=== PATIENT | female | born 1995 | race Caucasian/White ===

== ENCOUNTER 2022-10-17 11:14 | Outpatient (CLI) | payer BC, MEDICAID, SELFPAY ==
[2022-10-17] VITALS (14 sets, daily range): BP systolic 116–177; BP diastolic 69–97; PULSE 75–141; RESP 17; BMI 39.9
[2022-10-17 11:54] LABS: Basophils % 0.2 %; Eosinophils # 0.1 10^3/uL (0.0-0.8); Eosinophils % 0.6 %; Hematocrit 35.1 % (37.0-47.0); Hemoglobin 11.3 g/dL (11.5-15.3); Lymphocytes # 2.5 10^3/uL (0.8-4.8); Lymphocytes % 27.3 %; Mean Corpuscular HGB Conc 32.2 g/dL (30.0-36.0); Mean Corpuscular Hemoglobin 27.1 pg (28.0-34.0); Mean Corpuscular Volume 84.2 fl (81-99); Mean Platelet Volume 9.5 fL (7.4-10.4); Monocytes # 0.7 10^3/uL (0.2-0.9); Monocytes % 7.2 %; Neutrophils # 5.99 10^3/uL (1.8-7.7); Neutrophils % 64.4 %; Nucleated Red Blood Cells % 0 %; Platelet Count 216 10^3/cmm (130-400); Red Blood Count 4.17 10^6/uL (4.1-5.3); Red Cell Distribution Width 16.2 % (12.1-15.1); White Blood Count 9.3 10^3/uL (4.0-10.0)
[2022-10-17 12:35] LABS: Add Urine Microscopic? YES; Bilirubin Urine Neg (Negative); Blood Urine Neg (Negative); Glucose Urine UA Norm (Normal); Ketones Urine Negative (Negative); Leukocyte Esterase Urine 2+ (Negative); Nitrate Urine Negative (Negative); Protein Urine 1+ (Negative); Urine Appearance Hazy (CLEAR); Urine Color Yellow (Yellow); Urobilinogen Urine Neg (Negative); pH Urine 7 (5-7)
[2022-10-17 12:37] LABS: Bacteria Urine 2+ /hpf; RBC Urine 0-4 /hpf (0-2); Squamous Epithelial Cell Urine 15-25 /hpf (0-5)
[2022-10-17 12:38] LABS: Add Urine Culture? No; Mucus Urine 1+ /hpf
[2022-10-17 12:50] LABS: Urine Creatinine 89 mg/dL (28-217)
[2022-10-17 12:55] LABS: Alanine Aminotransferase 6 U/L (0-33); Albumin Level 3.3 g/dL (3.5-5.2); Alkaline Phosphatase 89 U/L (35-105); Aspartate Amino Transferase 13 U/L (0-32); Blood Urea Nitrogen 11 mg/dL (6-20); Calcium 8.9 mg/dL (8.5-10.5); Carbon Dioxide 21 mmol/L (22-29); Chloride 103 mmol/L (98-107); Globulin 2.9 g/dL (1.3-4.6); Glomerular Filtration Rate 190.1 mL/min (90-130); Glucose 80 mg/dL (65-115); Osmolality Calculated 278 mOsm/kg (285-295); Sodium 135 mmol/L (136-145); Total Bilirubin 0.2 mg/dL (0.15-1.2); Total Protein 6.2 g/dL (6.6-8.7); Uric Acid 5.4 mg/dL (2.4-5.7)
[2022-10-17 13:13] LABS: UPRO/UCREAT Ratio 0.61 mg/mg CR; Urine Protein Random 54 mg/dL
[2022-10-17 13:14] LABS: Anion Gap 15.3 (5-19); Potassium 4.3 mmol/L (3.5-5.1)
[2022-10-18 16:04] LABS: Total Volume, Urine 1100 mL
[2022-10-18 17:24] LABS: Urine Total Protein 12.4 mg/dL (0-150); Urine Total Protein 24 Hour 136.4 mg/24hr (0-150)
== END 2022-10-17 14:58 | disposition home or self-care (01) ==
LOC: OPOB 11:15 → OBGYN 11:22
PROVIDERS: PCP Family Medicine; Visit Provider Family Medicine
DX: O16.9 Unspecified maternal hypertension, unspecified trimester (principal); Z3A.00 Weeks of gestation of pregnancy not specified
CPT/HCPCS: 36415; 80053; 81001; 82570; 84156; 84550; 85025

== ENCOUNTER 2022-10-19 10:15 | Outpatient (CLI) | payer BC, MEDICAID, SELFPAY ==
[2022-10-19 10:30] VITALS: BP 137/94; PULSE 108
[2022-10-19 10:46] VITALS: BP 131/84; PULSE 85
[2022-10-19 11:00] VITALS: BP 135/93; PULSE 85
[2022-10-19 11:15] VITALS: BP 131/87; PULSE 79
[2022-10-19] MEDS: acetaminophen 500 mg Tablet 1000 MG PO (11:28)
[2022-10-19 11:30] VITALS: BP 126/86; PULSE 79
[2022-10-19 11:36] LABS: Urine Creatinine 149 mg/dL (28-217)
[2022-10-19 11:40] LABS: Urine Protein Random 30 mg/dL
[2022-10-19 11:45] VITALS: BP 123/88; PULSE 80
== END 2022-10-19 12:07 | disposition home or self-care (01) ==
LOC: OPOB 10:20 → OBGYN 10:22
PROVIDERS: PCP Family Medicine; Visit Provider Family Medicine
DX: O26.899 Other specified pregnancy related conditions, unspecified trimester (principal); H53.8 Other visual disturbances; R51.9 Headache, unspecified; R03.0 Elevated blood-pressure reading, without diagnosis of hypertension
CPT/HCPCS: 59025; 82570; 84156; 99211

== ENCOUNTER 2022-10-22 10:50 | Outpatient (CLI) | payer BC, MEDICAID, SELFPAY ==
[2022-10-22 11:06] VITALS: BP 138/91; PULSE 93; RESP 17; TEMP 35.9
[2022-10-22 11:10] VITALS: BMI 40.8
[2022-10-22 11:26] VITALS: BP 132/81; PULSE 94
[2022-10-22 11:37] VITALS: BP 132/81; PULSE 94
== END 2022-10-22 11:37 | disposition home or self-care (01) ==
LOC: OPOB 10:56 → OBGYN 10:56
PROVIDERS: PCP Family Medicine; Visit Provider Family Medicine
DX: O26.899 Other specified pregnancy related conditions, unspecified trimester (principal); R03.0 Elevated blood-pressure reading, without diagnosis of hypertension
CPT/HCPCS: 59025; 99211

== ENCOUNTER 2022-10-26 07:11 | Inpatient (IN) | payer BC, MEDICAID, SELFPAY ==
--- NOTE | 2022-10-24 09:11 | ANES.PREANE2 ---
Pre-Anesthetic Assessment Height/Weight: Height 1.63 m Operation Date: 10/26/22 09:20 Proposed Procedures p Section Repeat(Not Applicable) - Ignacio Nino MD Familial anesthetic complications: none Was Beta Erin taken within 24 hours: N/A Was Clonidine taken within 24 hours: N/A Social No alcohol and No tobacco Exam alert, oriented x 3, clear to auscultation bilaterally and regular rate & rhythm Airway Submandibular: within normal limits Cervical ROM: within normal limits Mallampati: Class II Dentition: full History/ROS No significant history except as noted Anesthetic Plan ASA status: 2 Anesthesia: Regional (specify below) (SAB for repeat C/S) Medications/Allergies Allergies Allergy/AdvReac Type Severity Reaction Status Date / Time No Known Allergies Allergy Unverified 07/28/20 15:57 Data Anesthesia Cardiac Studies: Holter Monitor 07/29/20
[2022-10-26] VITALS (32 sets, daily range): BP systolic 101–161; BP diastolic 56–101; PULSE 80–155; RESP 17; TEMP 36.7; O2SAT 95–100; BMI 40.9
[2022-10-26] MEDS: metoclopramide 5 mg/mL SDV 2 mL 10 MG IVP (08:07)
[2022-10-26] MEDS: famotidine 20 mg/2 mL INJ IVP (08:07)
[2022-10-26] MEDS: citric acid-sodium citrate 30 mL UDC PO (08:07)
--- NOTE | 2022-10-26 08:30 | P.HPUD_ITS ---
Labor & Delivery H&P Update Date of Procedure: October 26, 2022 Date H&P Performed: 10/23/22 Admission Diagnosis: 27-year-old 2 para 1-0-0-1 at 37 weeks estimated gestational age with gestational hypertension and a history of a section Primary indication for procedure: 1. History of 2. Gestational hypertension Planned procedure: Operation Date: 10/26/22 09:20 Proposed Procedures p Section Repeat(Not Applicable) - Ignacio Nino MD Other information: The patient is a 27-year-old 2 para 1-0-0-1 at 37 weeks estimated gestational age presenting for a repeat section. Over the last couple of weeks, she has had elevated blood pressures. She did have 1 protein creatinine ratio that was 0.6. Her 24-hour urine protein was within normal limits. Despite that, she has had headaches, she has had some possible scotom kelly. She has had swelling in her feet and hands. She is also noted some swelling in her face. As such, the decision was made to proceed with a C- section after 37 weeks. We discussed the risks with her including the risks of bleeding, infection, and damage intra-abdominal organs. Because of her history of a intraperitoneal infection post , she is aware that there is a likelihood of more scar tissue than usual, which also increases her risk of complications. She and her partner have no further questions and wish to proceed.
[2022-10-26] MEDS: ceFAZolin 2,000 MG in sodium chloride 0.9% (plus) 50 ML 100 MG IV (08:50)
[2022-10-26 08:56] LABS: Basophils % 0.3 %; Eosinophils # 0.1 10^3/uL (0.0-0.8); Eosinophils % 0.8 %; Hematocrit 35.4 % (37.0-47.0); Hemoglobin 10.5 g/dL (11.5-15.3); Lymphocytes # 2.4 10^3/uL (0.8-4.8); Lymphocytes % 33.6 %; Mean Corpuscular HGB Conc 29.7 g/dL (30.0-36.0); Mean Corpuscular Hemoglobin 27.4 pg (28.0-34.0); Mean Corpuscular Volume 92.4 fl (81-99); Mean Platelet Volume 9.8 fL (7.4-10.4); Monocytes # 0.6 10^3/uL (0.2-0.9); Monocytes % 8.2 %; Neutrophils % 56.7 %; Nucleated Red Blood Cells % 0 %; Platelet Count 164 10^3/cmm (130-400); Red Blood Count 3.83 10^6/uL (4.1-5.3); Red Cell Distribution Width 15.7 % (12.1-15.1); White Blood Count 7.2 10^3/uL (4.0-10.0)
--- NOTE | 2022-10-26 10:30 | PC.NURSE ---
pt in PACU at this time
--- NOTE | 2022-10-26 10:30 | PM.OP ---
Operative Report Date of procedure: October 26, 2022 Pre-op diagnosis: 1. 27-year-old 2 para 1-0-0-1 at 37 weeks estimated gestational age with gestational hypertension presenting for a repeat section Post-op diagnosis: Status post lower transverse section Procedure done: Lower transverse section Specimens removed/disposition: Male infant with a weight of 7 pounds 5 ounces and Apgars of 7 and 8 Placenta with a three-vessel cord delivered intact Surgeon: Ignacio Nino Estimated blood loss (mL): 1,200 Procedure: The patient was brought back to the operating room where she was prepped and draped in usual sterile fashion. Anesthesia was found to be adequate. A lower transverse skin incision was then made with a #10 blade. I then dissected down to the underlying subcutaneous tissue until arriving at the prerectal fascia. The fascia was then nicked with the scalpel bilaterally. The fascial incisions were then carried laterally with Ortega scissors. Attention was then turned to the superior aspect of the incision which was grasped with kochers and tented up away from the underlying rectus abdominis muscles. The muscles were then dissected away from the fascia manually, and later with Ortega scissors. Attention was then turned to the inferior aspect of the incision, and the fascia was dissected away from the underlying muscle in similar fashion. The rectus abdominis muscles were then spread manually. The peritoneum was entered manually. Excellent visualization of the uterus was noted. A lower transverse uterine incision was then made with a #10 blade. After making an initial incision, a large venous murcia was noted with significant bleeding. Prior to finishing the incision I placed a ring forcep on the largest bleeding vein. Upon arriving at the intrauterine cavity, the uterine incision was then extended manually. Allises were then used to rupture the amniotic membrane. The infant was noted to be in vertex position. The baby was delivered without difficulty. . There was no meconium. There was no nuchal cord.. The cord was cut and clamped. The baby was then handed to the waiting nurse. The placenta was removed intact. The uterus was externalized. The intrauterine cavity was cleansed of any remaining debris. The uterine incision was reapproximated in 2 layers. The first layer was performed with 0 Vicryl in a running locked stitch. The second layer was an imbricating stitch also using 0 Vicryl. The uterus was replaced into the abdomen. The peritoneum was then irrigated with warm saline. I reexamined the uterine incision and found it to be hemostatic. The rectus abdominis muscles were then reapproximated using 0 Vicryl in a running stitch. The fascia was then reapproximated using 0 Vicryl in running stitch. The subcutaneous tissue was reapproximated using 0 Vicryl in a running stitch. The skin was reapproximated using a subcuticular stitch with a Rip needle with 4-0 Vicryl.. Steri-Strips were placed. A sterile dressing was placed. All counts were correct x2. Both the mother and baby were in stable condition.
--- NOTE | 2022-10-26 11:17 | PC.NURSE ---
IV STARTED IN RIGHT UPPER ARM WITH #[address] PRESLEY. 2 ATTEMPTS BY THIS FIG CAPRIFIER AND ONCE BY LISSETTE CASAS RN AND 2 BY KATHLEEN LYONS RNSTAVE SAW OPERATOR, KATHLEEN USED ULTRASOUND WITH HER [address] PRESLEY STUCK HER A TOTAL OF 3 TIMES.
[2022-10-26] MEDS: ketorolac 30 mg/mL INJ IVP ×2 (12:05→18:34)
--- NOTE | 2022-10-26 13:00 | ANE.PACU2 ---
Inpatient post-anesthesia follow up: Airway intact: Yes Vital signs: Temperature Pulse Rate 111 Respiratory Rate Blood Pressure 124/74 Pulse Oximetry Oxygen Delivery Me thod Room Air Oxygen Flow Rate Fraction of Inspir ed Oxygen Hydration adequate: Yes Nausea and vomiting: No Pain level: 2 Mental status: Baseline
[2022-10-26 16:05] LABS: Hematocrit 26.3 % (37.0-47.0); Hemoglobin 8.6 g/dL (11.5-15.3); Mean Corpuscular HGB Conc 32.7 g/dL (30.0-36.0); Mean Corpuscular Hemoglobin 27.5 pg (28.0-34.0); Mean Platelet Volume 9.8 fL (7.4-10.4); Platelet Count 163 10^3/cmm (130-400); Red Blood Count 3.13 10^6/uL (4.1-5.3); Red Cell Distribution Width 15.6 % (12.1-15.1); White Blood Count 11.4 10^3/uL (4.0-10.0)
[2022-10-26 16:24] LABS: Alanine Aminotransferase 6 U/L (0-33); Albumin Level 2.7 g/dL (3.5-5.2); Alkaline Phosphatase 72 U/L (35-105); Anion Gap 16.3 (5-19); Aspartate Amino Transferase 15 U/L (0-32); Blood Urea Nitrogen 12 mg/dL (6-20); Carbon Dioxide 18 mmol/L (22-29); Chloride 108 mmol/L (98-107); Globulin 2.4 g/dL (1.3-4.6); Glomerular Filtration Rate 146.9 mL/min (90-130); Glucose 76 mg/dL (65-115); Osmolality Calculated 285 mOsm/kg (285-295); Potassium 4.3 mmol/L (3.5-5.1); Sodium 138 mmol/L (136-145); Total Bilirubin 0.2 mg/dL (0.15-1.2); Total Protein 5.1 g/dL (6.6-8.7); Uric Acid 5.5 mg/dL (2.4-5.7)
[2022-10-26] MEDS: docusate sodium 100 mg Capsule PO (18:34)
[2022-10-26] MEDS: ferrous sulfate EC 325 mg Tablet PO (18:34)
[2022-10-26] MEDS: sodium chloride 0.9% 500 ML 999 ML IV ×2 (20:29→22:52)
[2022-10-26] MEDS: lactated ringers 1,000 ML 999 ML IV (20:53)
[2022-10-26 22:02] LABS: Basophils % 0.3 %; Eosinophils % 0.2 %; Hematocrit 23.1 % (37.0-47.0); Hemoglobin 7.7 g/dL (11.5-15.3); Lymphocytes # 2.3 10^3/uL (0.8-4.8); Lymphocytes % 24.8 %; Mean Corpuscular HGB Conc 33.3 g/dL (30.0-36.0); Mean Corpuscular Hemoglobin 28.2 pg (28.0-34.0); Mean Corpuscular Volume 84.6 fl (81-99); Mean Platelet Volume 9.6 fL (7.4-10.4); Monocytes # 0.7 10^3/uL (0.2-0.9); Monocytes % 7.7 %; Neutrophils # 6.09 10^3/uL (1.8-7.7); Neutrophils % 66.8 %; Nucleated Red Blood Cells % 0 %; Platelet Count 141 10^3/cmm (130-400); Red Blood Count 2.73 10^6/uL (4.1-5.3); Red Cell Distribution Width 15.9 % (12.1-15.1); White Blood Count 9.1 10^3/uL (4.0-10.0)
[2022-10-27] VITALS (17 sets, daily range): BP systolic 130–173; BP diastolic 75–99; PULSE 90–103; TEMP 36.7–36.9; O2SAT 99–100
[2022-10-27] MEDS: ketorolac 30 mg/mL INJ IVP (00:13)
[2022-10-27] MEDS: dextrose 5%-lactated ringers 1,000 ML 125 ML IV (02:39)
[2022-10-27 05:41] LABS: Basophils % 0.4 %; Eosinophils % 0.4 %; Hematocrit 21.5 % (37.0-47.0); Hemoglobin 7.1 g/dL (11.5-15.3); Lymphocytes # 1.7 10^3/uL (0.8-4.8); Lymphocytes % 24.4 %; Mean Corpuscular Hemoglobin 27.7 pg (28.0-34.0); Mean Platelet Volume 9.2 fL (7.4-10.4); Monocytes # 0.5 10^3/uL (0.2-0.9); Monocytes % 7.2 %; Neutrophils # 4.69 10^3/uL (1.8-7.7); Neutrophils % 67.3 %; Nucleated Red Blood Cells % 0 %; Platelet Count 125 10^3/cmm (130-400); Red Blood Count 2.56 10^6/uL (4.1-5.3); Red Cell Distribution Width 15.9 % (12.1-15.1)
[2022-10-27] MEDS: docusate sodium 100 mg Capsule PO ×2 (09:22→20:46)
[2022-10-27] MEDS: prenatal vitamin Capsule 1 CAP PO (09:22)
[2022-10-27] MEDS: ferrous sulfate EC 325 mg Tablet PO ×2 (09:22→20:47)
[2022-10-27] MEDS: acetaminophen 325 mg Tablet 650 MG PO (11:16)
--- NOTE | 2022-10-27 11:56 | P.PN_ITS ---
PRIMARY HEALTH ORGANISATION MANAGER Subjective Subjective: Interval history: The patient is doing well overall. Her blood count has dropped about 4 points since surgery yesterday. She did receive a bolus of a liter and a half of fluid last night. Her vitals and her urine output have all improved substantially today. At this point I feel like she is recovering well, and appears that she is improving appropriately today Labor: Amniotic Membrane Status: Intact Monitor Mode: External Contraction Pattern: Absent Vitals/I&O/Wt Last Vital Signs Temp 98.4 F 10/27/22 08:00 Pulse 95 10/27/22 10:09 Resp 17 10/26/22 10:50 BP 136/83 10/27/22 10:09 Pulse Ox 99 10/27/22 09:51 O2 Del Method Room Air 10/26/22 10:50 10/26/22 10/27/22 10/27/22 22:59 06:59 14:59 Intake Total 1000 / 1000 Output Total 265 / 565 200 / 765 480 / 480 Balance -265 / -465 -200 / -665 520 / 520 Weight last 48 hrs Weight 238 lb 6.548 oz Weight 238 lb 6.548 oz Physical Exam Narrative: She is in no acute distress Lungs are clear auscultation bilaterally Her heart has a regular rate and rhythm Her fundus is below the umbilicus and firm Her dressing is clean, dry and intact Her extremities have trace edema Urinary Catheter Management: Patel: Cath Placed During This Visit: yes, but has since been removed by the nurse Reason for Continuing Indwelling Catheter: Decision to DC Catheter Urinary Catheter Date of Insertion: 10/26/22 Urinary Catheter Time of Insertion: 09:15 Date Urinary Catheter Removed: 10/27/22 Time Urinary Catheter Discontinued: 11:10 Data 10/27/22 13:50 10/26/22 15:45 A&P Assessment and plan (1) Status post : We will continue to monitor the patient due to her greater than average hemoglobin drop. I am more comfortable with how she is doing today. We will check her hemoglobin 1 more time at 2:00 and hopefully, if that is stable, no further testing will be required. (2) 37 weeks gestation of : (3) Gestational hypertension: Her blood pressures have been stable since her surgery. Attestations Medical Necessity Statement*: Routine and post care. If her vitals remained stable, and her hemoglobin remained stable, I anticipate she will be discharged home tomorrow. Coding Level of Care Code Acute Code for Chg Fwd Diagnoses Status post Z98.891 37 weeks gestation of Z3A.37 Gestational hypertension O13.9
[2022-10-27 14:15] LABS: Basophils % 0.3 %; Eosinophils % 0.4 %; Hematocrit 23.1 % (37.0-47.0); Hemoglobin 7.5 g/dL (11.5-15.3); Lymphocytes # 1.8 10^3/uL (0.8-4.8); Lymphocytes % 24.3 %; Mean Corpuscular HGB Conc 32.5 g/dL (30.0-36.0); Mean Corpuscular Hemoglobin 27.4 pg (28.0-34.0); Mean Corpuscular Volume 84.3 fl (81-99); Mean Platelet Volume 9.6 fL (7.4-10.4); Monocytes # 0.5 10^3/uL (0.2-0.9); Monocytes % 6.9 %; Neutrophils # 5.09 10^3/uL (1.8-7.7); Neutrophils % 67.7 %; Nucleated Red Blood Cells % 0 %; Platelet Count 159 10^3/cmm (130-400); Red Blood Count 2.74 10^6/uL (4.1-5.3); Red Cell Distribution Width 15.9 % (12.1-15.1); White Blood Count 7.5 10^3/uL (4.0-10.0)
[2022-10-27] MEDS: ibuprofen 800 mg tablet PO (20:46)
[2022-10-28 04:07] VITALS: BP 134/83; PULSE 96
--- NOTE | 2022-10-28 08:50 | P.DS_ITS ---
Discharge Providers FRONT DESK ASSOCIATE Date of Admission: 10/26/22 07:11 Date of Discharge: 10/28/22 Attending Provider at Admission: Ignacio Nino MD Attending Provider at Discharge: Ignacio Nino MD Primary Care Provider: Ignacio Nino MD Diagnoses at Discharge Discharge Diagnosis (1) Status post : Status: Acute (2) 37 weeks gestation of : Status: Acute (3) Gestational hypertension: Status: Acute Hospital Course Hospital Course The patient presented to the hospital for a repeat section at 37 weeks due to gestational hypertension. Her was unremarkable except for a more than average blood loss. Her course was remarkable for significant drop in her hemoglobin. Her hemoglobin did stabilize at 7.5. On day #1 she was passing gas, eating a regular diet, and ambulating without difficulty. Her pain was better than average and well controlled. Information Peripartum Data: Delivery Method: Physical Exam Narrative: She is in no acute distress Lungs are clear auscultation bilaterally Her heart has a regular rate and rhythm Her fundus is below the umbilicus and firm Her incision is clean, dry and intact. The dressing has been removed. Her extremities have trace edema Urinary Catheter Management: Patel: Cath Placed During This Visit: yes, but has since been removed by the nurse Reason for Continuing Indwelling Catheter: Decision to DC Catheter Urinary Catheter Date of Insertion: 10/26/22 Urinary Catheter Time of Insertion: 09:15 Date Urinary Catheter Removed: 10/27/22 Time Urinary Catheter Discontinued: 11:10 Discharge Data Studies Completed and Pending Laboratory Results WBC 7.5 10^3/uL (4.0-10.0) 10/27/22 13:50 RBC 2.74 10^6/uL (4.1-5.3) L 10/27/22 13:50 Hgb 7.5 g/dL (11.5-15.3) L 10/27/22 13:50 Hct 23.1 % (37.0-47.0) L 10/27/22 13:50 MCV 84.3 fl (81-99) 10/27/22 13:50 MCH 27.4 pg (28.0-34.0) L 10/27/22 13:50 MCHC 32.5 g/dL (30.0-36.0) 10/27/22 13:50 RDW 15.9 % (12.1-15.1) H 10/27/22 13:50 Plt Count 159 10^3/cmm (130-400) 10/27/22 13:50 MPV 9.6 fL (7.4-10.4) 10/27/22 13:50 Neut % (Auto) 67.7 % 10/27/22 13:50 Lymph % (Auto) 24.3 % 10/27/22 13:50 Dawes % (Auto) 6.9 % 10/27/22 13:50 Eos % (Auto) 0.4 % 10/27/22 13:50 Baso % (Auto) 0.3 % 10/27/22 13:50 Neut # (Auto) 5.09 10^3/uL (1.8-7.7) 10/27/22 13:50 Lymph # (Auto) 1.8 10^3/uL (0.8-4.8) 10/27/22 13:50 Dawes # (Auto) 0.5 10^3/uL (0.2-0.9) 10/27/22 13:50 Eos # (Auto) 0.0 10^3/uL (0.0-0.8) 10/27/22 13:50 Baso # (Auto) 0.0 10^3/uL (0.0-0.1) 10/27/22 13:50 Nucleated RBC % (auto) 0 % 10/27/22 13:50 Nucleated RBCs # 0.0 /100WBC 10/27/22 13:50 Sodium 138 mmol/L (136-145) 10/26/22 15:45 Potassium 4.3 mmol/L (3.5-5.1) 10/26/22 15:45 Chloride 108 mmol/L (98-107) H 10/26/22 15:45 Carbon Dioxide 18 mmol/L (22-29) L 10/26/22 15:45 Anion Gap 16.3 (5-19) 10/26/22 15:45 BUN 12 mg/dL (6-20) 10/26/22 15:45 Creatinine 0.5 mg/dL (0.5-0.9) 10/26/22 15:45 GFR Calculation 146.9 mL/min (90-130) H 10/26/22 15:45 Glucose 76 mg/dL (65-115) 10/26/22 15:45 Calculated Osmolality 285 mOsm/kg (285-295) 10/26/22 15:45 Uric Acid 5.5 mg/dL (2.4-5.7) 10/26/22 15:45 Calcium 8.0 mg/dL (8.5-10.5) L 10/26/22 15:45 Total Bilirubin 0.2 mg/dL (0.15-1.2) 10/26/22 15:45 AST 15 U/L (0-32) 10/26/22 15:45 ALT 6 U/L (0-33) 10/26/22 15:45 Alkaline Phosphatase 72 U/L (35-105) 10/26/22 15:45 Total Protein 5.1 g/dL (6.6-8.7) L 10/26/22 15:45 Albumin 2.7 g/dL (3.5-5.2) L 10/26/22 15:45 Globulin 2.4 g/dL (1.3-4.6) 10/26/22 15:45 Blood Type A Positive 10/26/22 15:45 Rho(D) Type Positive 10/26/22 15:45 Antibody Screen Negative 10/26/22 15:45 Vitals Last Vital Signs Temp 98.1 F 10/27/22 21:10 Pulse 96 10/28/22 04:07 Resp 17 10/26/22 10:50 BP 134/83 10/28/22 04:07 Pulse Ox 100 10/27/22 15:42 O2 Del Method Room Air 10/26/22 10:50 Discharge Plan Discharge Patient Disposition: Home Condition: Stable Prescriptions: New ferrous sulfate 325 mg (65 mg iron) Tablet,Delayed Release (Dr/Ec) 325 mg PO BID Qty: 60 0RF Rx Instructions: Eat 1 hour prior to breakfast and dinner with vitamin C ibuprofen 800 mg Tablet 800 mg PO TID Qty: 45 0RF -U 106.5-1 mg Capsule 1 cap PO BREAKFAST Qty: 90 1RF Rx Instructions: Continue while breast-feeding docusate sodium 100 mg Capsule 100 mg PO BID Qty: 14 0RF hydrocodone-acetaminophen 5-325 mg Tablet 1 tab PO Q6H PRN (Reason: Moderate To Severe Pain) Qty: 24 0RF escitalopram oxalate 10 mg tablet 10 mg PO DAILY Qty: 30 3RF Discontinued fluoxetine 20 mg capsule 10-400 mg-mcg Capsule PO Discharge Orders: Discharge Order (Routine); Ordered 10/28/22 Ordered By: Ignacio Nino Discharge Diet: Usual diet Discharge Activity: Limit activity as instructed Patient Instructions: Depression (DC), Bleeding (DC), Preeclampsia and Eclampsia After Delivery (GEN), Hemorrhage (DC), OB - Mica/Katty, OB Discharge Report, OB Food/Drug Interaction Guide, OB Care at Home, Opioid Safety, OB Home Care, OB Proud Parent Packet Discharge Attestations FRONT DESK ASSOCIATE Time Spent in Discharge Care*: less than 30 min Coding Level of Care Code Acute Code for Chg Fwd Diagnoses Status post Z98.891 37 weeks gestation of Z3A.37 Gestational hypertension O13.9
[2022-10-28 09:21] VITALS: BP 135/92; PULSE 110; TEMP 36.8; O2SAT 98
[2022-10-28] MEDS: ferrous sulfate EC 325 mg Tablet PO (09:40)
[2022-10-28] MEDS: docusate sodium 100 mg Capsule PO (09:40)
[2022-10-28] MEDS: prenatal vitamin Capsule 1 CAP PO (09:40)
[2022-10-28] MEDS: ibuprofen 800 mg tablet PO (09:40)
[2022-10-28 11:48] VITALS: BP 138/94; PULSE 99; TEMP 36.8; O2SAT 100
[2022-10-28 11:55] VITALS: BP 138/94; PULSE 99; TEMP 36.8; O2SAT 100
== END 2022-10-28 11:55 | disposition home or self-care (01) | DRG 788 ==
PROVIDERS: Admitting Provider Family Medicine; PCP Family Medicine; Visit Provider Family Medicine
PROC: 10D00Z1 Extraction of Products of Conception, Low, Open Approach (ICD-10-PCS; CPT 59514; principal; 2022-10-26 09:00)
DX: O34.219 Maternal care for unspecified type scar from previous cesarean delivery (principal); Z3A.37 37 weeks gestation of pregnancy; Z37.0 Single live birth; O13.4 Gestational [pregnancy-induced] hypertension without significant proteinuria, complicating childbirth
CPT/HCPCS: 12345; 36415; 51702; 59025; 59409; 80053; 84550; 85025; 85027; 86850; 86900; 96374; 96376; 99211; J0690; J1885; J2274; J2370; J2405; J2590; J2765; J3490; J7040; J7120; J7121